=== PATIENT | male | born 1985 | race Caucasian/White ===

== ENCOUNTER 2019-09-25 00:33 | Emergency (ER) | payer SELFPAY ==
[~2019-09-25] VITALS: Ht 182.9 cm; Wt 107.0 kg
[2019-09-25 00:34] VITALS: BP 115/67
== END 2019-09-25 01:52 | disposition home or self-care (01) ==
LOC: ED 01:18
DX: J18.9 Pneumonia, unspecified organism (principal); F17.210 Nicotine dependence, cigarettes, uncomplicated; R06.02 Shortness of breath; R05 Cough
CPT/HCPCS: 71045; 99406